=== PATIENT | female | born 1960 | race Caucasian/White ===

== ENCOUNTER 2018-09-11 08:19 | Day surgery (SDC) | payer OTHER ==
[~2018-09-11] VITALS: Ht 152.4 cm; Wt 72.1 kg
[2018-09-11 08:55] VITALS: BP 138/75
[2018-09-11 14:34] VITALS: BP 119/68
== END 2018-09-11 12:05 | disposition home or self-care (01) ==
LOC: GI 08:19 → OR 10:30 → GI 12:05
PROVIDERS: Internal Medicine Gastroenterology
PROC: 0DJD8ZZ Inspection of Lower Intestinal Tract, Via Natural or Artificial Opening Endoscopic (ICD-10-PCS; principal; 2018-09-11 10:30)
DX: Z12.11 Encounter for screening for malignant neoplasm of colon (principal); K57.30 Diverticulosis of large intestine without perforation or abscess without bleeding
CPT/HCPCS: 45378; J1200; J1610; J2250; J2310; J3010; J3490